=== PATIENT | male | born 1960 | race Caucasian/White ===

== ENCOUNTER → 2024-01-10 06:59 | Outpatient (REF) | payer MEDICARE, BC, SELFPAY | LOC: RAD 06:59 | PROVIDERS: ATTENDING PHYSICIAN Family Medicine | DX: R91.1 Solitary pulmonary nodule (principal) | CPT/HCPCS: 71250 ==

== ENCOUNTER → 2024-09-29 17:34 | Outpatient (REF) | payer MEDICARE, BC, SELFPAY | LOC: PAVMRI 17:34 | PROVIDERS: ATTENDING PHYSICIAN Physical Medicine & Rehabilitation | DX: M54.16 Radiculopathy, lumbar region (principal) | CPT/HCPCS: 72148 ==

== ENCOUNTER → 2024-11-23 12:08 | Outpatient (REF) | payer MEDICARE, BC, SELFPAY | LOC: RAD 12:08 | PROVIDERS: ATTENDING PHYSICIAN Family Medicine | DX: R05.9 Cough, unspecified (principal) | CPT/HCPCS: 71046 ==

== ENCOUNTER → 2024-12-08 12:39 | Outpatient (REF) | payer MEDICARE, BC, SELFPAY | LOC: MRI 3T 12:39 | PROVIDERS: ATTENDING PHYSICIAN Urology; FAMILY PHYSICIAN Family Medicine | DX: R97.20 Elevated prostate specific antigen [PSA] (principal) | CPT/HCPCS: 72197; A9575 ==